=== PATIENT | male | born 1975 | race Caucasian/White ===

== ENCOUNTER → 2018-07-25 | Outpatient (REF) | payer BC | LOC: M SFHCPLAZ 16:45 | DX: Z00.00 Encounter for general adult medical examination without abnormal findings (principal); Z13.220 Encounter for screening for lipoid disorders ==

== ENCOUNTER 2019-02-06 21:24 | Emergency (ER) | payer BC ==
[~2019-02-06] VITALS: Ht 180.3 cm; Wt 84.1 kg
[2019-02-06] MEDS ORDERED: ATOM40CA PO (21:33)
[2019-02-06] MEDS ORDERED: NORCO 5/325MG TABLET (BULK FOR ED) PO ONE (23:00)
[2019-02-06] MEDS ORDERED: NORC1TAB7 PO (23:02)
[2019-02-06 23:07] VITALS: BP 142/84
--- NOTE | 2019-02-07 08:47 | REP ---
BILATERAL TOE SERIES: HISTORY: Pain in the right middle toe and left great toe post injury. FINDINGS: Four views of the right medial forefoot demonstrate soft tissue swelling and cortical irregularity at the distal phalanges of the 2nd and 3rd toes, question dorsal the avulsion chip fractures of these two digits. Bones joints and soft tissues are otherwise unremarkable. On the left, four views of the left great toe demonstrate normal bones, joints and soft tissues. IMPRESSION: Chip fractures of the dorsal aspects of the distal phalanges of the right 2nd and 3rd toes suspected. No other fracture is seen. Electronically Signed by Scott Leija MD 02/07/2019 11:48 A
--- NOTE | 2019-02-07 08:48 | REP ---
RIGHT SHOULDER SERIES: Three views. HISTORY: Injury. FINDINGS: Three views of the right shoulder demonstrate normal alignment of the glenohumeral and acromioclavicular joints. No clavicular or humeral fracture is seen. There is slight deformity along the lateral scapular border at its junction with the glenoid. This may reflect an old injury. Scapular radiographs versus scapular CT study may provide additional information. Periarticular soft tissues are unremarkable. IMPRESSION: Old appearing scapular deformity along the lateral scapular margin. Consider scapular radiographs versus CT scanning. No definite acute fracture seen. Electronically Signed by Scott Leija MD 02/07/2019 11:48 A
--- NOTE | 2019-02-08 18:09 | ED PDOC ---
Post-Departure Follow-Up speedy mcdonough rn given formalmreport or bilateral toes to reach out to pt and arr byron follow up w ricardo and crutches mlzi report faxed to dr olmedo and ricardo forfu García Dominguez MD February 08, 2019 18:09
== END 2019-02-06 23:24 | disposition home or self-care (01) ==
LOC: M ED 21:24
DX: S90.121A Contusion of right lesser toe(s) without damage to nail, initial encounter (principal); S90.112A Contusion of left great toe without damage to nail, initial encounter; S43.401A Unspecified sprain of right shoulder joint, initial encounter; V23.4XXA Motorcycle driver injured in collision with car, pick-up truck or van in traffic accident, initial encounter; Y92.410 Unspecified street and highway as the place of occurrence of the external cause; F90.9 Attention-deficit hyperactivity disorder, unspecified type; Z79.899 Other long term (current) drug therapy

== ENCOUNTER → 2023-04-14 | Outpatient (CLI) | payer BC ==
[~2023-04-14] MED LIST: ATOM40CA16 PO; NORC1TAB7 PO
[2023-04-14 15:07] LABS: BASO # 0.1 10^3/uL (0.0-0.2); BASO % 1.2 % (0.0-1.0); EOS # 0.9 10^3/uL (0.0-0.5); EOS % 9.9 % (0.0-3.0); HEMATOCRIT 47.3 % (42.0-52.0); HEMOGLOBIN 16.3 g/dl (13.5-17.5); LYMPH # 3.5 10^3/uL (1.5-5.0); LYMPH % 38.6 % (24.0-44.0); MEAN CORPUSCULAR HEMOGLOBIN 32.2 pg (27.0-33.0); MEAN CORPUSCULAR HGB CONC 34.5 g/dl (32.0-36.5); MEAN CORPUSCULAR VOLUME 93.5 fl (80.0-96.0); MONO # 0.7 10^3/uL (0.0-0.8); MONO % 7.4 % (2.0-8.0); NEUTROPHILS # 3.8 10^3/uL (1.5-8.5); NEUTROPHILS % 42.6 % (36.0-66.0); PLATELET COUNT, AUTOMATED 302 10^3/uL (150-450); RED BLOOD COUNT 5.06 10^6/uL (4.30-6.10)
[2023-04-14 16:06] LABS: ALBUMIN 4.3 G/DL (3.2-5.2); ALKALINE PHOSPHATASE 55 U/L (46-116); ALT/SGPT 31 U/L (7.0-40); AST/SGOT 17 U/L (<34); BILIRUBIN,TOTAL 0.5 MG/DL (0.3-1.2); BLOOD UREA NITROGEN 14 MG/DL (9-23); CALCIUM LEVEL 9.5 MG/DL (8.5-10.1); CARBON DIOXIDE LEVEL 29 MMOL/L (20-31); CHLORIDE LEVEL 105 MMOL/L (98-107); CHOLESTEROL LEVEL 213 MG/DL (<200); CHOLESTEROL RISK RATIO 5.71 (<5); CREATININE FOR GFR 1.09 MG/DL (0.70-1.30); FREE T4 0.93 NG/DL (0.89-1.76); GLOMERULAR FILTRATION RATE > 60.0 (>56); GLUCOSE, FASTING 95 MG/DL (60-100); HDL CHOLESTEROL 37.3 MG/DL (>40); LDL CHOLESTEROL 115.9 MG/DL (<100); NON-HDL-C 175.7 MG/DL; POTASSIUM SERUM 4.7 MMOL/L (3.5-5.1); SODIUM LEVEL 141 MMOL/L (136-145); TOTAL PROTEIN 6.7 G/DL (5.7-8.2); TRIGLYCERIDES LEVEL 299 MG/DL (<150)
== END ==
LOC: M PLALAB 10:05
PROVIDERS: ATTEND Nurse Practitioner Family
DX: K59.00 Constipation, unspecified (principal); K64.9 Unspecified hemorrhoids; Z13.220 Encounter for screening for lipoid disorders; Z13.228 Encounter for screening for other metabolic disorders

== ENCOUNTER → 2023-12-03 | Outpatient (CLI) | payer BC ==
[2023-12-03 13:57] LABS: BASO # 0.1 10^3/uL (0.0-0.2); EOS # 0.7 10^3/uL (0.0-0.5); EOS % 11.2 % (0.0-3.0); HEMATOCRIT 47.9 % (42.0-52.0); LYMPH # 2.1 10^3/uL (1.5-5.0); LYMPH % 33.7 % (24.0-44.0); MEAN CORPUSCULAR HEMOGLOBIN 31.7 pg (27.0-33.0); MEAN CORPUSCULAR HGB CONC 33.4 g/dl (32.0-36.5); MEAN CORPUSCULAR VOLUME 94.9 fl (80.0-96.0); MONO # 0.7 10^3/uL (0.0-0.8); MONO % 11.7 % (2.0-8.0); NEUTROPHILS # 2.5 10^3/uL (1.5-8.5); NEUTROPHILS % 41.1 % (36.0-66.0); PLATELET COUNT, AUTOMATED 317 10^3/uL (150-450); RED BLOOD COUNT 5.05 10^6/uL (4.30-6.10); WHITE BLOOD COUNT 6.2 10^3/uL (4.0-10.0)
[2023-12-03 14:09] LABS: HEMOGLOBIN A1c 5.6 % (4.0-6.0)
[2023-12-03 14:22] LABS: ALBUMIN 4.4 G/DL (3.2-5.2); ALKALINE PHOSPHATASE 55 U/L (46-116); ALT/SGPT 37 U/L (7.0-40); AST/SGOT 20 U/L (<34); BILIRUBIN,TOTAL 0.5 MG/DL (0.3-1.2); BLOOD UREA NITROGEN 19 MG/DL (9-23); CALCIUM LEVEL 9.2 MG/DL (8.5-10.1); CARBON DIOXIDE LEVEL 31 MMOL/L (20-31); CHLORIDE LEVEL 106 MMOL/L (98-107); CHOLESTEROL LEVEL 188 MG/DL (<200); CHOLESTEROL RISK RATIO 5.83 (<5); GLOMERULAR FILTRATION RATE > 60.0 (>56); GLUCOSE, FASTING 77 MG/DL (60-100); HDL CHOLESTEROL 32.2 MG/DL (>40); LDL CHOLESTEROL 90.2 MG/DL (<100); NON-HDL-C 155.8 MG/DL; SODIUM LEVEL 141 MMOL/L (136-145); TOTAL PROTEIN 6.6 G/DL (5.7-8.2); TRIGLYCERIDES LEVEL 328 MG/DL (<150)
== END ==
LOC: M PLAIMG 09:10
PROVIDERS: ATTEND Nurse Practitioner Family
DX: M54.50 Low back pain, unspecified (principal); E78.2 Mixed hyperlipidemia; F98.8 Other specified behavioral and emotional disorders with onset usually occurring in childhood and adolescence; Z13.1 Encounter for screening for diabetes mellitus

== ENCOUNTER 2025-06-17 14:49 | Emergency (ER) | payer BC, OTHER ==
[~2025-06-17] VITALS: Ht 177.8 cm; Wt 85.6 kg
[2025-06-17 18:54] VITALS: BP 144/89; TEMP 98.6; O2SAT 98
[2025-06-17 19:23] LABS: BASO # 0.1 10^3/uL (0.0-0.2); BASO % 1.0 % (0.0-1.0); EOS # 0.8 10^3/uL (0.0-0.5); EOS % 5.3 % (0.0-3.0); LYMPH # 3.1 10^3/uL (1.5-5.0); LYMPH % 21.1 % (24.0-44.0); MONO # 0.8 10^3/uL (0.0-0.8); MONO % 5.8 % (2.0-8.0); NEUTROPHILS # 9.7 10^3/uL (1.5-8.5); NEUTROPHILS % 66.5 % (36.0-66.0); PLATELET COUNT, AUTOMATED 305 10^3/uL (150-450)
[2025-06-17 19:35] LABS: ERYTHROCYTE SEDIMENTATION RATE < 1 mm/hr (0-20)
[2025-06-17] MEDS: KETOROLAC 30 MG/ML 1 ML VIAL IV ONE (19:39)
[2025-06-17 19:43] LABS: C REACTIVE PROTEIN QUANTITATIV < 0.50 MG/DL (<1.0); CALCIUM LEVEL 9.2 MG/DL (8.5-10.1); CARBON DIOXIDE LEVEL 29 MMOL/L (20-31); CHLORIDE LEVEL 105 MMOL/L (98-107); CREATININE FOR GFR 1.15 MG/DL (0.70-1.30); GLOMERULAR FILTRATION RATE 76.6 (>56); POTASSIUM SERUM 4.3 MMOL/L (3.5-5.1); SODIUM LEVEL 142 MMOL/L (136-145)
[2025-06-17] MEDS ORDERED: CEPH500C PO (20:54)
== END 2025-06-17 21:05 | disposition home or self-care (01) ==
LOC: M ED 14:49
DX: M92.522 Juvenile osteochondrosis of tibia tubercle, left leg (principal); R22.42 Localized swelling, mass and lump, left lower limb; Z79.2 Long term (current) use of antibiotics; Z79.899 Other long term (current) drug therapy
CPT/HCPCS: 73564; 80048; 84550; 85025; 85652; 86140; 93971; 96374; 99283; J1885